=== PATIENT | male | born 1970 | race Caucasian/White ===

== ENCOUNTER 2017-03-19 02:59 | Inpatient (IN) | payer OTHER ==
[~2017-03-19] VITALS: Ht 165.1 cm; Wt 73.0 kg
[~2017-03-19 02:59] MED LIST: BACTROBAN2% TP; CLINDAMYCIN HC300 MG PO; HIB480 TP
[2017-03-19] MEDS ORDERED: XANAX2 MG PO (03:54)
[2017-03-19 03:56] LABS: BASOPHIL % 0.8 % (0-2); PLATELET COUNT 253 x10^3mcL (130-400); RED CELL DISTRIBUTION WIDTH 12.1 % (11.5-14.5)
[2017-03-19 04:09] LABS: CALCIUM 8.2 mg/dL (8.5-10.1); CARBON DIOXIDE 27.6 mmol/L (21-32); CHLORIDE SERUM 100 mmol/L (98-107); CREATININE SERUM 0.7 mg/dL (0.7-1.3); GFR1 > 60 mL/min; GLUCOSE SERUM 106 mg/dL (74-106); POTASSIUM SERUM 3.7 mmol/L (3.5-5.1); SODIUM SERUM 135 mmol/L (136-145)
[2017-03-19 04:21] LABS: ALBUMIN 2.8 g/dL (3.4-5.0); ALKALINE PHOSPHATASE 103 U/L (46-116); ALT/SGPT 35 U/L (16-63); AST/SGOT 32 U/L (15-37); TOTAL PROTEIN, SERUM 7.2 g/dL (6.4-8.2)
[2017-03-19 04:40] LABS: PHOSPHOROUS 3.2 mg/dL (2.5-4.9)
[2017-03-19 04:42] LABS: CHOLESTEROL/HDL RATIO 2.6
[2017-03-19 04:44] LABS: T3 TOTAL 1.59 ng/mL
[2017-03-19 04:47] LABS: FREE T4 1.68 ng/dL (0.76-1.46)
[2017-03-19 04:53] LABS: FREE THYROXINE INDEX 4.5 ug/dL (1.4-4.5)
[2017-03-19 04:58] VITALS: BP 110/66
[2017-03-19 05:59] VITALS: BP 110/66
[2017-03-19 06:14] LABS: microscopic required? NO
[2017-03-19 06:41] LABS: urine erythrocyte NEGATIVE (NEGATIVE)
[2017-03-19 06:54] LABS: AMPHETAMINE QUAL UR POSITIVE (NEG <=1000)
[2017-03-19 13:39] VITALS: BP 95/54
[2017-03-19 16:57] VITALS: BP 98/57
[2017-03-19 21:59] VITALS: BP 95/77
[2017-03-20 07:50] VITALS: BP 100/54
[2017-03-20 08:55] LABS: CALCIUM 8.4 mg/dL (8.5-10.1); CARBON DIOXIDE 31.4 mmol/L (21-32); CHLORIDE SERUM 106 mmol/L (98-107); CREATININE SERUM 0.7 mg/dL (0.7-1.3); GFR1 > 60 mL/min; POTASSIUM SERUM 3.5 mmol/L (3.5-5.1); SODIUM SERUM 140 mmol/L (136-145)
[2017-03-20 08:58] LABS: BASOPHIL % 0.6 % (0-2); PLATELET COUNT 260 x10^3mcL (130-400); RED CELL DISTRIBUTION WIDTH 12.2 % (11.5-14.5)
[2017-03-20 11:05] VITALS: BP 95/60
[2017-03-20 11:15] LABS: GLUCOSE SERUM 104 mg/dL (74-106)
[2017-03-20 17:59] VITALS: BP 103/61
[2017-03-20 21:09] VITALS: BP 112/71
[2017-03-21 05:45] VITALS: BP 102/63
[2017-03-21 10:00] VITALS: BP 120/65
[2017-03-21 12:55] VITALS: BP 119/67
== END 2017-03-22 10:12 | disposition left against medical advice (07) | DRG 579 ==
LOC: ED 02:59 → DU 04:08
PROVIDERS: Emergency Medicine; Surgery; ADMIT Family Medicine
PROC: 0J9F0ZZ Drainage of Left Upper Arm Subcutaneous Tissue and Fascia, Open Approach (ICD-10-PCS; 2017-03-20)
PROC: 0J9H0ZZ Drainage of Left Lower Arm Subcutaneous Tissue and Fascia, Open Approach (ICD-10-PCS; principal; 2017-03-20 09:00)
DX: L03.114 Cellulitis of left upper limb (principal); G93.41 Metabolic encephalopathy; L03.115 Cellulitis of right lower limb; E87.1 Hypo-osmolality and hyponatremia; E44.0 Moderate protein-calorie malnutrition; L03.113 Cellulitis of right upper limb; B95.61 Methicillin susceptible Staphylococcus aureus infection as the cause of diseases classified elsewhere; F11.10 Opioid abuse, uncomplicated; F41.9 Anxiety disorder, unspecified; M94.0 Chondrocostal junction syndrome [Tietze]; R73.03 Prediabetes; E05.90 Thyrotoxicosis, unspecified without thyrotoxic crisis or storm; D64.9 Anemia, unspecified; G47.00 Insomnia, unspecified; F12.10 Cannabis abuse, uncomplicated; F17.210 Nicotine dependence, cigarettes, uncomplicated; Z68.26 Body mass index [BMI] 26.0-26.9, adult
CPT/HCPCS: 83880; 84439; 90715; J0696; J2175; J2250; J2270; J2405; J2704; J3010; J3490; J7030; J7120; Q0092

== ENCOUNTER 2017-05-09 20:39 | Emergency (ER) | payer OTHER ==
[~2017-05-09 20:39] MED LIST changes: +XANAX2 MG PO
[2017-05-09 23:35] VITALS: BP 119/79
== END 2017-05-09 23:35 | disposition home or self-care (01) ==
LOC: ED 20:39
DX: T78.3XXA Angioneurotic edema, initial encounter (principal); Z88.0 Allergy status to penicillin; Z91.419 Personal history of unspecified adult abuse; Y92.89 Other specified places as the place of occurrence of the external cause
CPT/HCPCS: J1100; J1200

== ENCOUNTER 2018-12-20 02:17 | Emergency (ER) | payer OTHER ==
[~2018-12-20] VITALS: Ht 162.6 cm; Wt 75.7 kg
[2018-12-20 02:25] VITALS: Ht 162.6 cm; Wt 75.7 kg
[2018-12-20 04:19] VITALS: BP 124/89
== END 2018-12-20 04:19 | disposition home or self-care (01) ==
LOC: ED 02:17
DX: L02.511 Cutaneous abscess of right hand (principal); Z88.0 Allergy status to penicillin
CPT/HCPCS: J0690; J2001

== ENCOUNTER 2019-05-11 23:51 | Emergency (ER) | payer OTHER | END 2019-05-12 00:28 | disposition left against medical advice (07) | LOC: ED 23:51 | DX: Z53.21 Procedure and treatment not carried out due to patient leaving prior to being seen by health care provider (principal) ==